=== PATIENT | male | born 1940 | race Caucasian/White ===

== ENCOUNTER 2024-08-10 12:08 | Emergency (ER) | payer MEDICARE ==
[~2024-08-10] VITALS: Ht 167.6 cm; Wt 62.3 kg
[2024-08-10 12:45] LABS: BASO # 0.1 10^3/uL (0.0-0.2); BASO % 0.4 % (0.0-1.0); EOS % 0.1 % (0.0-3.0); HEMOGLOBIN 9.5 g/dl (12.0-15.5); LYMPH # 0.6 10^3/uL (1.5-5.0); LYMPH % 4.5 % (24.0-44.0); MEAN CORPUSCULAR HEMOGLOBIN 31.4 pg (27.0-33.0); MEAN CORPUSCULAR HGB CONC 31.7 g/dl (32.0-36.5); MONO # 0.3 10^3/uL (0.0-0.8); MONO % 1.9 % (2.0-8.0); NEUTROPHILS # 11.9 10^3/uL (1.5-8.5); NEUTROPHILS % 92.4 % (36.0-66.0); PLATELET COUNT, AUTOMATED 276 10^3/uL (150-450); RED BLOOD COUNT 3.03 10^6/uL (4.00-5.40); WHITE BLOOD COUNT 12.9 10^3/uL (4.0-10.0)
[2024-08-10 12:58] VITALS: BP 137/57
[2024-08-10] MEDS: ASPIRIN 81MG CHEW TABLET PO ONE (12:58)
[2024-08-10] MEDS: NITROGLYCERIN 0.4MG SUBL TABLET SL PRN (12:58)
[2024-08-10 13:07] LABS: CK-MB VALUE MASS 2.7 NG/ML (<3.6)
[2024-08-10 13:09] LABS: ALBUMIN 3.5 G/DL (3.2-5.2); ALKALINE PHOSPHATASE 56 U/L (40-129); ALT/SGPT 20 U/L (7.0-40); AST/SGOT 22 U/L (<34); BILIRUBIN,DIRECT < 0.1 MG/DL (<0.4); BILIRUBIN,TOTAL 0.2 MG/DL (0.3-1.2); BLOOD UREA NITROGEN 37 MG/DL (9-23); CALCIUM LEVEL 8.9 MG/DL (8.3-10.6); CARBON DIOXIDE LEVEL 19 MMOL/L (20-31); CHLORIDE LEVEL 111 MMOL/L (98-107); CPK CREATINE PHOSPHOKINASE 52 U/L (46-171); CREATININE FOR GFR 2.13 MG/DL (0.70-1.30); GLUCOSE, FASTING 141 MG/DL (74-106); MB/CK RELATIVE INDEX 5.19 (< OR =4); POTASSIUM SERUM 4.4 MMOL/L (3.5-5.1); SODIUM LEVEL 142 MMOL/L (136-145); TOTAL PROTEIN 6.3 G/DL (5.7-8.2)
[2024-08-10 13:13] LABS: INR 0.99; PARTIAL THROMBOPLASTIN TIME 26.1 SECONDS (24.8-34.2); PROTHROMBIN TIME 13.4 SECONDS (12.5-14.5)
[2024-08-10 14:24] LABS: CK-MB VALUE MASS 2.2 NG/ML (<3.6)
[2024-08-10 14:59] VITALS: O2SAT 98
[2024-08-10 17:06] VITALS: BP 127/61; TEMP 98.5; O2SAT 98
== END 2024-08-10 17:04 | disposition home or self-care (01) ==
LOC: M ED 12:08 → EDSEX 12:08 → M ED 17:04
DX: R07.9 Chest pain, unspecified (principal); I10 Essential (primary) hypertension; E78.5 Hyperlipidemia, unspecified; J44.9 Chronic obstructive pulmonary disease, unspecified; R06.02 Shortness of breath; Z87.891 Personal history of nicotine dependence; Z86.79 Personal history of other diseases of the circulatory system

== ENCOUNTER 2025-04-02 12:37 | Emergency (ER) | payer MEDICARE ==
[2025-04-02 13:05] LABS: BASO # 0.1 10^3/uL (0.0-0.2); BASO % 1.0 % (0.0-1.0); EOS # 0.2 10^3/uL (0.0-0.5); EOS % 1.4 % (0.0-3.0); LYMPH # 2.0 10^3/uL (1.5-5.0); LYMPH % 16.9 % (24.0-44.0); MONO # 1.1 10^3/uL (0.0-0.8); MONO % 9.5 % (2.0-8.0); NEUTROPHILS # 8.2 10^3/uL (1.5-8.5); NEUTROPHILS % 70.4 % (36.0-66.0); PLATELET COUNT, AUTOMATED 272 10^3/uL (150-450)
[2025-04-02 13:30] LABS: CALCIUM LEVEL 8.7 MG/DL (8.3-10.6); CARBON DIOXIDE LEVEL 23.0 MMOL/L (20-31); CHLORIDE LEVEL 108.0 MMOL/L (98-107); CK-MB VALUE MASS 1.9 NG/ML (<3.6); CREATININE FOR GFR 2.01 MG/DL (0.70-1.30); GLOMERULAR FILTRATION RATE 31.9 (>35); POTASSIUM SERUM 4.4 MMOL/L (3.5-5.1); SODIUM LEVEL 142.0 MMOL/L (136-145)
[2025-04-02 13:45] LABS: FREE T4 0.84 NG/DL (0.89-1.76)
[2025-04-02 13:52] LABS: CPK CREATINE PHOSPHOKINASE 39.0 U/L (46-171); MB/CK RELATIVE INDEX 4.87 (< OR =4)
[2025-04-02 14:36] LABS: CK-MB VALUE MASS 1.6 NG/ML (<3.6)
[2025-04-02 14:41] LABS: CPK CREATINE PHOSPHOKINASE 33.0 U/L (46-171); MB/CK RELATIVE INDEX 4.84 (< OR =4)
[2025-04-02 14:55] VITALS: O2SAT 96
[2025-04-02 15:04] VITALS: BP 151/81; TEMP 98.3; O2SAT 99
== END 2025-04-02 15:05 | disposition home or self-care (01) ==
LOC: M ED 13:23
DX: R07.89 Other chest pain (principal); R06.00 Dyspnea, unspecified; I11.9 Hypertensive heart disease without heart failure; N18.30 Chronic kidney disease, stage 3 unspecified; J44.9 Chronic obstructive pulmonary disease, unspecified; F41.9 Anxiety disorder, unspecified; Z90.5 Acquired absence of kidney; Z85.46 Personal history of malignant neoplasm of prostate